=== PATIENT | female | born 1965 | race Caucasian/White ===

== ENCOUNTER → 2019-09-02 | Outpatient (CLI) | payer OTHER ==
--- NOTE | 2019-09-02 16:56 | Diagnostic Imaging Report ---
Indication: Back pain Thoracic spine AP and lateral views of the thoracic spine shows normal vertebral body height and alignment. Disc spaces are normal. IMPRESSION: Negative lumbar spine Dictated by: Dictated on workstation # [id number]
--- NOTE | 2019-09-02 16:57 | Diagnostic Imaging Report ---
Indication: Back injury AP and lateral views of the lumbar spine show normal vertebral body height and alignment. Disc spaces are normal. IMPRESSION: Minimal spondylosis. No acute abnormality seen. Dictated by: Dictated on workstation # [id number]
--- NOTE | 2019-09-02 17:29 | Diagnostic Imaging Report ---
EXAMINATION: Cervical spine radiographs, 5 views. COMPARISON: None. HISTORY: 53-year-old female, neck pain and cervical radiculopathy. FINDINGS: The lateral masses of C1 are nondisplaced relative to C2. The cervical disc heights are well-preserved. There are no prominent endplate degenerative changes. There are mild uncovertebral degenerative changes at C3-C4 and C4-C5. There are are also likely facet degenerative related changes at these levels. There is no prominent prevertebral soft tissue swelling. There is no identified acute fracture. IMPRESSION: 1. Mild uncovertebral and facet degenerative changes at C3-C4 and C4-C5. 2. Well-preserved cervical disc spaces. 3. No identified acute fracture of the cervical spine. Dictated by: Dictated on workstation # [id number]
== END ==
LOC: RAD FS 16:09
PROVIDERS: ATTEND Internal Medicine
DX: M47.22 Other spondylosis with radiculopathy, cervical region (principal); S39.92XA Unspecified injury of lower back, initial encounter; M99.04 Segmental and somatic dysfunction of sacral region; M54.6 Pain in thoracic spine
CPT/HCPCS: 72050; 72072; 72100

== ENCOUNTER → 2020-04-09 | Outpatient (CLI) | payer OTHER ==
--- NOTE | 2020-04-09 12:10 | Diagnostic Imaging Report ---
Clinical indication: Patient with joint pain. No known injury. EXAM: X-ray of the lumbar spine, 3 views. COMPARISON: X-ray of the lumbar spine dated 09/02/2019. FINDINGS: There is no acute lumbar spine fracture or dislocation. There is no significant change to mildly hypertrophic spurs involving the lumbar spine. There is lower lumbar spine facet arthropathy/sclerosis. The bilateral sacroiliac joints are unremarkable. IMPRESSION: Stable lumbar spine degenerative disease with no acute fracture or dislocation. Dictated by: Dictated on workstation # [id number]
--- NOTE | 2020-04-09 12:18 | Diagnostic Imaging Report ---
INDICATION: Foot pain. History of psoriasis. COMPARISON: None FINDINGS: Multiple radiographic views of the bilateral feet were obtained and demonstrate no acute fracture or dislocation. Mild osteoarthritic changes are noted, greatest involving the 1st metatarsal phalangeal joint space on the left. There are no focal osseous lesions. There is no soft tissue swelling. Joint spaces are well maintained. No radiopaque foreign bodies are seen. IMPRESSION: Mild osteoarthritic changes, greatest involving the 1st metatarsal phalangeal joint space on the left. Otherwise, unremarkable radiographic exam of the bilateral feet. Dictated by: Dictated on workstation # [id number]
--- NOTE | 2020-04-09 12:20 | Diagnostic Imaging Report ---
INDICATION: Hand pain. History of psoriasis. COMPARISON: None. FINDINGS: Multiple radiographic views of the bilateral hands were obtained and show no fractures, dislocations, or other acute bony abnormalities. Joint spaces are well maintained throughout. The soft tissues appear unremarkable. No radiopaque foreign bodies are identified. IMPRESSION: Unremarkable radiographic exam of the bilateral hands. Dictated by: Dictated on workstation # [id number]
--- NOTE | 2020-04-09 12:54 | Diagnostic Imaging Report ---
CLINICAL INDICATION: Patient with joint pain. No known injury. EXAMS: 1: X-ray of the pelvis AP view. 2: X-ray of the sacroiliac joints, three views. COMPARISON: None. FINDINGS: X-ray of both hips are unremarkable with no fracture or dislocation. There is a roughly 5 mm subchondral cystic appearing areas involving the lateral aspect of the proximal right femoral head/neck junction region which may be from degenerative changes. Otherwise, there are no significant degenerative changes. X-ray of the sacroiliac joints shows no significant abnormality. There is minimal sclerosis of the right sacroiliac joint. Otherwise, the sacroiliac joints are unremarkable. IMPRESSION: 1: X-ray of the pelvis, hips, sacroiliac joints show no acute fracture or dislocation. 2: There is a roughly 5 mm subchondral cystic-appearing area involving the lateral aspect of the proximal right femoral head/neck junction region which may be from degenerative changes. 3: Otherwise, there is no significant bony abnormality. Dictated by: Dictated on workstation # [id number]
== END ==
LOC: LAB FS 10:53
DX: M25.50 Pain in unspecified joint (principal); M25.60 Stiffness of unspecified joint, not elsewhere classified; L40.9 Psoriasis, unspecified; M79.10 Myalgia, unspecified site; R53.82 Chronic fatigue, unspecified
CPT/HCPCS: 36415; 72100; 72170; 72202; 82306; 84443; 85652; 86141; 86200; 86431

== ENCOUNTER → 2021-08-23 | Outpatient (CLI) | payer OTHER ==
--- NOTE | 2021-08-23 10:08 | Diagnostic Imaging Report ---
INDICATION: Right ankle pain. TIME OF EXAM: 9:39 AM Two views of the right ankle were obtained. Alignment is normal. Joint spaces are well-maintained. Ankle mortise is well maintained. Talar dome is smooth. There is a plantar calcaneal spur. No fracture or dislocation is identified. IMPRESSION: No acute bony abnormality is detected. Dictated by: Dictated on workstation # [id number]
== END ==
LOC: RAD FS 09:19
PROVIDERS: ATTEND Internal Medicine Rheumatology
DX: M25.571 Pain in right ankle and joints of right foot (principal)
CPT/HCPCS: 73600

== ENCOUNTER 2022-06-07 09:42 | Emergency (ER) | payer SELFPAY ==
[~2022-06-07] VITALS: Ht 175.2 cm; Wt 86.3 kg
[2022-06-07] MEDS ORDERED: ASPIRIN 81 MG CHEW (CHILDREN'S ASA) PO ONE (10:00)
[2022-06-07 10:13] LABS: BASOPHILS # (AUTO) 0.1 10^3/uL (0.0-0.1); BASOPHILS % (AUTO) 1 % (0-10); EOSINOPHILS # (AUTO) 0.3 10^3/uL (0.0-0.3); EOSINOPHILS % (AUTO) 4 % (0-10); HEMATOCRIT 40 % (35-52); HEMOGLOBIN 13.5 g/dL (11.5-16.0); LYMPHOCYTES # (AUTO) 2.1 10^3/uL (1.0-4.0); LYMPHOCYTES % (AUTO) 31 % (12-44); MEAN CORPUSCULAR HEMOGLOBIN 28 pg (25-34); MEAN CORPUSCULAR HGB CONC 33 g/dL (32-36); MEAN CORPUSCULAR VOLUME 84 fL (80-99); MEAN PLATELET VOLUME 9.4 fL (9.0-12.2); MONOCYTES # (AUTO) 0.5 10^3/uL (0.0-1.0); MONOCYTES % (AUTO) 7 % (0-12); NEUTROPHILS # (AUTO) 3.8 10^3/uL (1.8-7.8); NEUTROPHILS % (AUTO) 57 % (42-75); PLATELET COUNT 277 10^3/uL (130-400); WHITE BLOOD COUNT 6.7 10^3/uL (4.3-11.0)
--- NOTE | 2022-06-07 10:13 | Diagnostic Imaging Report ---
INDICATION: Chest pain. COMPARISON: None FINDINGS: Single frontal radiographic view of the chest was obtained and demonstrates small left basilar effusion. Otherwise, lungs are clear. There is no large effusion on the right. No pneumothorax is seen on either side. Cardiac silhouette and pulmonary vasculature are within normal limits. Osseous structures show no gross acute abnormalities. IMPRESSION: 1. Small left basilar effusion. Dictated by: Dictated on workstation # [id number]
--- NOTE | 2022-06-07 10:19 | ED Chest Pain ---
General Chief Complaint: Chest Pain Stated Complaint: CHEST PAIN Nursing Triage Note: Patient presents to the ED with c/o left sided chest pain. Reports intermittent sharp chest pain x1 week. Was seen at urgent care and sent to the ED for possible ST elevation. Patient denies any pain at this time. Denies any fever, weakness, nausea, vomiting, cough. Source: patient Exam Limitations: no limitations History of Present Illness Date Seen by Provider: Jun 07, 2022 Time Seen by Provider: 09:48 Initial Comments 56-year-old female patient with history of fibromyalgia and prediabetic sent from urgent care because of chest pain and possible ST elevation. Patient states for the last 1 week she has had intermittent episodes of left lateral chest pain as a sharp pain with radiation to the substernal area and associated with shortness of breath without nausea, diaphoresis, focal neurodeficit, fever and chills that usually last few seconds to few minutes and rated her pain 10/10. Patient states she had about 3 episodes of chest pain every day that is not related to activity or eating. Patient denies recent immobilization or leg pain, urinary symptoms, diarrhea and constipation, history of chest. Patient states she usually takes baby aspirin without having history of cardiac problems but did not take any baby aspirin today. Patient had history of coronary artery disease in her father. Allergies and Home Medications Allergies Coded Allergies: No Known Drug Allergies (Unverified , 06/07/22) Patient Home Medication List Home Medication List Reviewed: Yes Ibuprofen (Ibuprofen) 800 Mg Tablet, 800 MG PO Q8H PRN for PAIN Prescribed by: Lore viera on 06/07/22 1224 Methylprednisolone (Methylprednisolone Dose Pack) 4 Mg Tab.ds.pk, 4 MG PO UD Prescribed by: Lore viera on 06/07/22 1224 Review of Systems Review of Systems Constitutional: no symptoms reported EENTM: No Symptoms Reported Respiratory: See HPI Cardiovascular: See HPI Gastrointestinal: No Symptoms Reported Genitourinary: No Symptoms Reported Musculoskeletal: no symptoms reported Skin: no symptoms reported Psychiatric/Neurological: No Symptoms Reported Endocrine: No Symptoms Reported Hematologic/Lymphatic: No Symptoms Reported All Other Systems Reviewed Negative Unless Noted: Yes Past Knzqxuu-Hzqpyq-Jrbcot Hx Patient Social History Tobacco Use?: No Substance use?: No Alcohol Use?: No Pt feels they are or have been: No Past Medical History Surgery/Hospitalization HX: Fibromyalgia Physical Exam Vital Signs Vital Signs - First Documented 06/07/22 09:45 Temp 36.3 Pulse 68 Resp 14 B/P (MAP) 190/92 (124) Pulse Ox 96 O2 Delivery Room Air Capillary Refill : Less Than 3 Seconds Height, Weight, BMI Height: '" Weight: lbs. oz. kg; 28.00 BMI Method: General Appearance: No Apparent Distress, WD/WN HEENT: PERRL/EOMI Neck: Full Range of Motion, Normal Inspection, Non Tender, Supple Respiratory: Chest Non Tender, Lungs Clear, Normal Breath Sounds, No Accessory Muscle Use Cardiovascular: Regular Rate, Rhythm, No Edema, No Gallop, No JVD, No Murmur, Normal Peripheral Pulses Gastrointestinal: Normal Bowel Sounds, No Organomegaly, No Pulsatile Mass, Non Tender, Soft Extremity: Normal Capillary Refill, Normal Inspection, Normal Range of Motion, Non Tender Neurologic/Psychiatric: Alert, Oriented x3, No Motor/Sensory Deficits Skin: Normal Color, Warm/Dry Lymphatic: No Adenopathy Progress/Results/Core Measures Results/Orders Lab Results Laboratory Tests Test 06/07/22 09:55 06/07/22 11:36 Range/Units White Blood Count 6.7 4.3-11.0 10^3/uL Red Blood Count 4.79 3.80-5.11 10^6/uL Hemoglobin 13.5 11.5-16.0 g/dL Hematocrit 40 35-52 % Mean Corpuscular Volume 84 80-99 fL Mean Corpuscular Hemoglobin 28 25-34 pg Mean Corpuscular Hemoglobin Concent 33 32-36 g/dL Red Cell Distribution Width 13.0 10.0-14.5 % Platelet Count 277 130-400 10^3/uL Mean Platelet Volume 9.4 9.0-12.2 fL Immature Granulocyte % (Auto) 0 % Neutrophils (%) (Auto) 57 42-75 % Lymphocytes (%) (Auto) 31 12-44 % Monocytes (%) (Auto) 7 0-12 % Eosinophils (%) (Auto) 4 0-10 % Basophils (%) (Auto) 1 0-10 % Neutrophils # (Auto) 3.8 1.8-7.8 10^3/uL Lymphocytes # (Auto) 2.1 1.0-4.0 10^3/uL Monocytes # (Auto) 0.5 0.0-1.0 10^3/uL Eosinophils # (Auto) 0.3 0.0-0.3 10^3/uL Basophils # (Auto) 0.1 0.0-0.1 10^3/uL Immature Granulocyte # (Auto) 0.0 0.0-0.1 10^3/uL Prothrombin Time 12.7 12.2-14.7 SEC INR Comment 0.9 0.8-1.4 Activated Partial Thromboplast Time 27 24-35 SEC D-Dimer 1.27 H 0.00-0.49 UG/ML Sodium Level 140 135-145 MMOL/L Potassium Level 3.9 3.6-5.0 MMOL/L Chloride Level 104 98-107 MMOL/L Carbon Dioxide Level 29 21-32 MMOL/L Anion Gap 7 5-14 MMOL/L Blood Urea Nitrogen 17 7-18 MG/DL Creatinine 0.68 0.60-1.30 MG/DL Estimat Glomerular Filtration Rate 101 BUN/Creatinine Ratio 25 Glucose Level 98 70-105 MG/DL Calcium Level 9.3 8.5-10.1 MG/DL Corrected Calcium 9.1 8.5-10.1 MG/DL Magnesium Level 2.0 1.6-2.4 MG/DL Total Bilirubin 0.4 0.1-1.0 MG/DL Aspartate Amino Transf (AST/SGOT) 21 5-34 U/L Alanine Aminotransferase (ALT/SGPT) 18 0-55 U/L Alkaline Phosphatase 97 40-136 U/L Myoglobin 36.0 <58.0 NG/ML Troponin I < 0.30 < 0.30 <0.30 NG/ML Total Protein 7.1 6.4-8.2 GM/DL Albumin 4.3 3.2-4.5 GM/DL Lipase 32 8-78 U/L My Orders Orders - LORE VIERA MD Cbc With Automated Diff (06/07/22 10:00) Magnesium (06/07/22 10:00) Chest 1 View Ap/Pa Only (06/07/22 10:00) Ekg Tracing (06/07/22 10:00) Comprehensive Metabolic Panel (06/07/22 10:00) Myoglobin Serum (06/07/22 10:00) Protime With Inr (06/07/22 10:00) Partial Thromboplastin Time (06/07/22 10:00) Monitor-Rhythm Ecg Trace Only (06/07/22 10:00) Aspirin Chewable Tablet (Baby Aspirin Ch (06/07/22 10:00) Ed Iv/Invasive Line Start (06/07/22 10:00) Lipase (06/07/22 10:00) Troponin I Fs (06/07/22 10:00) Fibrin Degradation Products (06/07/22 10:00) Ct Angio Chest W (06/07/22 10:54) Iohexol Injection (Omnipaque 300 Mg/Ml 1 (06/07/22 11:15) Sodium Chloride Flush (Catheter Flush Sy (06/07/22 11:15) Ns (Ivpb) (Sodium Chloride 0.9% Ivpb Bag (06/07/22 11:15) Troponin I Fs (06/07/22 12:00) Medications Given in ED Current Medications Medications Dose Ordered Sig/Naren Route Start Time Stop Time Status Last Admin Dose Admin Aspirin 324 mg ONCE ONCE PO 06/07/22 10:00 06/07/22 10:03 DC 06/07/22 10:08 324 MG Sodium Chloride 10 ml NEEDED PRN IV 06/07/22 11:15 06/07/22 12:26 DC 06/07/22 11:32 10 ML Sodium Chloride 100 ml ONCE ONCE IV 06/07/22 11:15 06/07/22 11:17 DC 06/07/22 11:32 80 ML Vital Signs/I&O 06/07/22 06/07/22 09:45 12:26 Temp 36.3 36.3 Pulse 68 64 Resp 14 15 B/P (MAP) 190/92 (124) 147/79 Pulse Ox 96 98 O2 Delivery Room Air Room Air Blood Pressure Mean: 124 Progress Progress Note : Progress Note Evaluation of patient in ER showed 56-year-old female patient with complaining of intermittent episodes of left lateral side of chest pain for 1 week and abnormal EKG at urgent care. Patient had mild elevation of blood pressure at arrival to ER. EKG showed left bundle branch block P.previous EKG to compare. Patient had 2 sets of troponin that was negative. Chest x-ray showed small left pleurisy. D-dimer was elevated at one-point and CT chest angio PE protocol did not show PE and showed a small left pleural effusion. Patient did not have chest pain while she was in ER. Plan discharge patient home with diagnosis of pleurisy and advised to follow-up with her primary care physician or return to ER as needed. Initial ECG Impression Date: Jun 07, 2022 Initial ECG Impression Time: 09:50 Initial ECG Intervals EKG interpreted by me. EKG at 0950 showed normal sinus rhythm at rate of 73, left bundle branch block, MS interval of 144 and QT interval of 418, no acute ST elevation. No. EKG available for compare. Diagnostic Imaging Plain Films/CT/US/NM/MRI: chest Comments Chest x-ray interpreted by radiologist and reviewed by me and showed: NAME: ALBERTA BAKER MED REC#: [id number] PT STATUS: REG ER : 1965 PHYSICIAN: LORE VIERA MD ADMIT DATE: 06/07/22/ER FS Draft Date of Exam:06/07/22 CHEST 1 VIEW AP/PA ONLY INDICATION: Chest pain. COMPARISON: None FINDINGS: Single frontal radiographic view of the chest was obtained and demonstrates small left basilar effusion. Otherwise, lungs are clear. There is no large effusion on the right. No pneumothorax is seen on either side. Cardiac silhouette and pulmonary vasculature are within normal limits. Osseous structures show no gross acute abnormalities. IMPRESSION: 1. Small left basilar effusion. Dictated on workstation # [id number] Dict: 06/07/22 1011 Trans: 06/07/22 1013 JANAY [id number] Interpreted by: LIZABETH WAY MD Electronically signed by: CT Results/Progress Notes CT angio chest for PE protocol interval treated by radiologist and reviewed by me and showed: [place], [place] NAME: ALBERTA BAKER MED REC#: [id number] PT STATUS: REG ER : 1965 PHYSICIAN: LORE VIERA MD ADMIT DATE: 06/07/22/ER FS Signed Date of Exam:06/07/22 CT ANGIO CHEST W PROCEDURE: CT angiography of the chest with contrast. TECHNIQUE: Multiple contiguous axial images were obtained through the chest after uneventful bolus administration of intravenous contrast. 3D reconstructed CTA MIP acquisitions were also performed. Auto Exposure Controls were utilized during the CT exam to meet ALARA standards for radiation dose reduction. INDICATION: Chest pain. Elevated D-dimer. COMPARISON: Chest radiograph performed earlier the same date. FINDINGS: This helical CT pulmonary angiogram is diagnostic to the subsegmental level branches of the pulmonary artery and demonstrates no pulmonary emboli. The heart and great vessels are unremarkable. There is no pericardial effusion. There is no axillary, mediastinal, or hilar adenopathy. Small left-sided pleural effusion is seen with dependent opacities in the left lung base. No focal mass. No central endobronchial obstructing lesions. No pneumothorax. Osseous structures appear normal. Limited views of the upper abdomen are unremarkable. IMPRESSION: 1. No acute pulmonary embolus. 2. Small left-sided pleural effusion with dependent opacities in the left lung base. Dictated by: Dictated on workstation # [id number] Dict: 06/07/22 1139 Trans: 06/07/22 1142 [facility] [id number] Departure Impression Primary Impression: Pleurisy with effusion Disposition: HOME, SELF-CARE Condition: Improved Departure-Patient Inst. Decision time for Depature: 12:24 Referrals: DOLORES PATTERSON DO (PCP) Primary Care Physician DANIELLE PATTERSON DNP (Family) Primary Care Physician Patient Instructions: Pleuritic Chest Pain ED Add. Discharge Instructions: Drink plenty of liquid Record your blood pressure when you do not have pain Follow-up with your primary care physician in 5 to 7 days or return to ER as needed All discharge instructions reviewed with patient and/or family. Voiced understanding. Scripts Ibuprofen (Ibuprofen) 800 Mg Tablet 800 MG PO Q8H PRN for PAIN, #30 TAB 0 Refills Prov: LORE VIERA MD 06/07/22 Methylprednisolone (Methylprednisolone Dose Pack) 4 Mg Tab.ds.pk 4 MG PO UD for asthma for 6 Days, #21 PKG PER DOSE PACK INSTRUCTIONS Prov: LORE VIERA MD 06/07/22 LORE VIERA MD Jun 07, 2022 10:19
[2022-06-07 10:37] LABS: BILIRUBIN,TOTAL 0.4 MG/DL (0.1-1.0); CALCIUM 9.3 MG/DL (8.5-10.1); CREATININE SERUM 0.68 MG/DL (0.60-1.30); POTASSIUM 3.9 MMOL/L (3.6-5.0)
[2022-06-07 10:38] LABS: ALBUMIN 4.3 GM/DL (3.2-4.5); TOTAL PROTEIN 7.1 GM/DL (6.4-8.2)
[2022-06-07 10:39] LABS: INR 0.9 (0.8-1.4); PROTHROMBIN TIME PATIENT 12.7 SEC (12.2-14.7)
[2022-06-07] MEDS ORDERED: IOHEXOL 300 MG/ML 100 ML (OMNIPAQUE 300) VIAL IV ONE (11:15)
[2022-06-07] MEDS ORDERED: NS 100 ML (IVPB) BAG IV ONE (11:15)
[2022-06-07] MEDS ORDERED: CATHETER FLUSH 10 ML SYR IV PRN (11:15)
--- NOTE | 2022-06-07 11:42 | Diagnostic Imaging Report ---
PROCEDURE: CT angiography of the chest with contrast. TECHNIQUE: Multiple contiguous axial images were obtained through the chest after uneventful bolus administration of intravenous contrast. 3D reconstructed CTA MIP acquisitions were also performed. Auto Exposure Controls were utilized during the CT exam to meet ALARA standards for radiation dose reduction. INDICATION: Chest pain. Elevated D-dimer. COMPARISON: Chest radiograph performed earlier the same date. FINDINGS: This helical CT pulmonary angiogram is diagnostic to the subsegmental level branches of the pulmonary artery and demonstrates no pulmonary emboli. The heart and great vessels are unremarkable. There is no pericardial effusion. There is no axillary, mediastinal, or hilar adenopathy. Small left-sided pleural effusion is seen with dependent opacities in the left lung base. No focal mass. No central endobronchial obstructing lesions. No pneumothorax. Osseous structures appear normal. Limited views of the upper abdomen are unremarkable. IMPRESSION: 1. No acute pulmonary embolus. 2. Small left-sided pleural effusion with dependent opacities in the left lung base. Dictated by: Dictated on workstation # [id number]
[2022-06-07] MEDS ORDERED: METH4TAB10 PO (12:24)
[2022-06-07] MEDS ORDERED: IBUP-1780 PO (12:24)
[2022-06-07 12:26] VITALS: BP 147/79
== END 2022-06-07 12:26 | disposition home or self-care (01) ==
LOC: EDUNIT# 09:42 → ER FS 09:44
DX: R09.1 Pleurisy (principal); I44.7 Left bundle-branch block, unspecified
CPT/HCPCS: 36415; 71045; 71275; 80053; 83690; 83735; 83874; 84484; 85025; 85379; 85610; 85730; 93005; 93041